=== PATIENT | female | born 1955 | race Caucasian/White ===

== ENCOUNTER 2018-04-13 12:25 | Emergency (ER) | payer OTHER ==
[2018-04-13] MEDS ORDERED: CODEINE 30MG/APAP 300MG TAB ONE ×2 (14:53→14:54)
[2018-04-13] MEDS ORDERED: LIDOCAINE VISCOUS 2% SOLN 15 ML UDC ONE (15:09)
--- NOTE | 2018-04-13 16:13 | EDPHYS ---
Physician Documentation [facility] Name: Salima Benitez Age: 62 yrs Sex: Female : 1955 Arrival Date: 04/13/2018 Time: 12:26 Bed 30 Private MD: Hari Gupta ED Physician Mann Fulton HPI: 04/13 14:14 This 62 yrs old Female presents to ER via Ambulatory with complaints of Leg cp Pain. 14:14 The patient presents with a laceration, irregular. The complaints affect the right pozo.cp 14:14 Context: resulted from a direct blow, from a heavy object, the patient can fully bear cp weight. Onset: The symptoms/episode began/occurred 11 day(s) ago. Patient reports initial injury occurred 11 days ago when she dropped mirror on right lower leg. Laceration was closed at [place] emergency department and patient had subsequent f/u appt with DR Gupta yesterday. Patient was told to come to ED today for reevaluation. Historical: - Allergies: 12:39 No Known Allergies; aj - Home Meds: 12:39 Lipitor 20 mg Oral tab 1 tab once daily [Active]; lisinopril 20 mg Oral tab 1 tab once aj daily [Active]; - PMHx: 12:39 Hyperlipidemia; Hypertension; aj - PSHx: 12:39 cataract; aj - Immunization history:: Adult Immunizations up to date. - Social history:: Smoking status: Patient/guardian denies using tobacco. - Ebola Screening: : Patient denies travel to an Ebola-affected area in the 21 days before illness onset No symptoms or risks identified at this time. ROS: 14:20 Constitutional: Negative for body aches, chills, fever, poor PO intake. cp 14:20 Eyes: Negative for injury, pain, redness, and discharge. cp 14:20 ENT: Negative for drainage from ear(s), ear pain, sore throat, difficulty swallowing, difficulty handling secretions. 14:20 Cardiovascular: Negative for chest pain. 14:20 Respiratory: Negative for cough, shortness of breath, wheezing. 14:20 Abdomen/GI: Negative for abdominal pain, nausea, vomiting, diarrhea, constipation. 14:20 Skin: Positive for laceration(s), of the anterior aspect right lower leg. 14:20 All other systems are negative. Exam: 14:28 Constitutional: The patient appears in no acute distress, alert, awake, non-toxic, well cp developed, well nourished, uncomfortable. 14:28 Head/Face: Normocephalic, atraumatic. cp 14:28 Eyes: Periorbital structures: appear normal, Conjunctiva: normal, no exudate, no injection, Lids and lashes: appear normal, bilaterally. 14:28 ENT: External ear(s): are unremarkable, Nose: is normal, Mouth: is normal, Posterior pharynx: is normal, airway is patent. 14:28 Chest/axilla: Inspection: normal. 14:28 Cardiovascular: Rate: normal. 14:28 Respiratory: the patient does not display signs of respiratory distress, Respirations: normal, no use of accessory muscles, no retractions, no splinting, no tachypnea. 14:28 Abdomen/GI: Exam negative for discomfort, distension, guarding, Inspection: abdomen appears normal. 14:28 Skin: abscess, not appreciated, Wound recheck: Suture laceration closure: no drainage, mild erythema, mild swelling, moderate dehiscence. Vital Signs: 12:39 BP 124 / 92; Pulse 96; Resp 15; Temp 97.6; Pulse Ox 98% on R/A; Weight 57.61 kg; Height aj 5 ft. 4 in. (162.56 cm); 14:46 BP 131 / 84; Pulse 71; Resp 20; Temp 99; tl3 16:11 BP 144 / 82; Pulse 82; Resp 18; Pulse Ox 100% ; tl3 12:39 Body Mass Index 21.80 (57.61 kg, 162.56 cm) Procedures: 16:00 Suture/Staple removal: Removed 10 sutures, from anterior aspect right lower leg, site cp appears minimal erythema, moderate wound dehiscence , dressed with wound cleaned and irrigated, dressed with non stick dressing and guaze. Patient tolerated well. MDM: 13:08 Patient medically screened. cp 14:30 Differential diagnosis: abscess, cellulitis, osteomyelitis. cp 14:45 Physician consultation: Hari Gupta MD was contacted at 14:45, regarding consult, cp patient's condition, requests that every other suture be removed from laceration, wound cleaned and irrigated and patient can f/u in clinic next week. Patient to be discharged with pain meds and antibiotic. 16:12 Data reviewed: vital signs, nurses notes, and as a result, I will discharge patient. cp 16:12 Counseling: I had a detailed discussion with the patient and/or guardian regarding: the cp historical points, exam findings, and any diagnostic results supporting the discharge/admit diagnosis, the need for outpatient follow up, a general surgeon, to return to the emergency department if symptoms worsen or persist or if there are any questions or concerns that arise at home. 04/13 16:11 Order name: Wound dressing: bacitracin and nonstick dressing; Complete Time: 16:24 cp Administered Medications: 14:59 Drug: Tylenol #3 (300 mg-30 mg) 2 tabs Route: PO; tl3 15:25 Follow up: Response: No adverse reaction tl3 Disposition: 04/13/18 16:13 Discharged to Home. Impression: Encounter for change or removal of nonsurgical wound dressing. - Condition is Stable. - Discharge Instructions: Dressing Change, Wound Check, Wound Care, [id number]. - Prescriptions for Bactrim DS 800- 160 mg Oral Tablet - take 1 tablet by ORAL route every 12 hours for 10 days; 20 tablet. Tylenol- Codeine #3 300-30 mg Oral Tablet - take 2 tablets by ORAL route every 6 hours As needed; 20 tablet. - Medication Reconciliation Form, Thank You Letter, Antibiotic Education, Prescription Opioid Use form. - Follow up: Hari Gupta MD; When: next week for wound check; Reason: sooner if wound appears worse. - Problem is an ongoing problem. - Symptoms have improved. Addendum: 04/15/2018 13:27 Co-signature as Attending Physician, Mann Fulton MD. g s Signatures: Sofya Branch RN RN Dalton Kevin PA PA cp Mann Fulton MD MD gs Lowrey, Tammy, DANITA RN tl3 Corrections: (The following items were deleted from the chart) 04/13 16:24 16:13 04/13/2018 16:13 Discharged to Home. Impression: Encounter for change or removal tl3 of nonsurgical wound dressing. Condition is Stable. Forms are Medication Reconciliation Form, Thank You Letter, Antibiotic Education, Prescription Opioid Use. Follow up: Hari Gupta; When: next week for wound check; Reason: sooner if wound appears worse. Problem is an ongoing problem. Symptoms have improved. cp
--- NOTE | 2018-04-13 16:13 | ER ---
Nurse's Notes [facility] Name: Salima Benitez Age: 62 yrs Sex: Female : 1955 Arrival Date: 04/13/2018 Time: 12:26 Bed 30 Private MD: Hari Gupta Diagnosis: Encounter for change or removal of nonsurgical wound dressing Presentation: 04/13 12:37 Presenting complaint: Patient states: Pain to sutures in right leg that were placed 2 aj weeks ago. Seen by PCP and Surgeon yesterday. Transition of care: patient was not received from another setting of care. Onset of symptoms was April 13, 2018. Care prior to arrival: None. 12:37 Method Of Arrival: Ambulatory aj 12:37 Acuity: LETICIA 4 aj 16:24 Risk Assessment: Do you want to hurt yourself or someone else? Patient reports no tl3 desire to harm self or others. Initial Sepsis Screen: Does the patient meet any 2 criteria? No. Patient's initial sepsis screen is negative. Does the patient have a suspected source of infection? No. Patient's initial sepsis screen is negative. Triage Assessment: 12:39 General: Appears in no apparent distress. comfortable, Behavior is calm, cooperative, aj appropriate for age. Pain: Complains of pain in right pozo. Neuro: Level of Consciousness is awake, alert, obeys commands, Oriented to person, place, time, situation. Respiratory: Airway is patent Respiratory effort is even, unlabored, Respiratory pattern is regular, symmetrical. Derm: Skin is intact, is healthy with good turgor, Skin is pink, warm \T\ dry. normal. Musculoskeletal: Reports pain in right pozo, anterior aspect of right ankle and dorsum of right foot. Historical: - Allergies: 12:39 No Known Allergies; aj - Home Meds: 12:39 Lipitor 20 mg Oral tab 1 tab once daily [Active]; lisinopril 20 mg Oral tab 1 tab once aj daily [Active]; - PMHx: 12:39 Hyperlipidemia; Hypertension; aj - PSHx: 12:39 cataract; aj - Immunization history:: Adult Immunizations up to date. - Social history:: Smoking status: Patient/guardian denies using tobacco. - Ebola Screening: : Patient denies travel to an Ebola-affected area in the 21 days before illness onset No symptoms or risks identified at this time. Screenin:17 Abuse screen: Denies threats or abuse. Nutritional screening: No deficits noted. tl3 Tuberculosis screening: No symptoms or risk factors identified. Fall Risk None identified. Assessment: 13:17 General: Appears uncomfortable, slender, well groomed, well developed, well nourished, tl3 Behavior is calm, cooperative, appropriate for age. Pain: Complains of pain in dorsum of right foot and anterior aspect of right ankle and right leg and right pozo Pain currently is 5 out of 10 on a pain scale. Aggravated by increased activity. Neuro: No deficits noted. Level of Consciousness is awake, alert, Oriented to person, place, time, situation, Appropriate for age. Cardiovascular: Capillary refill < 3 seconds in right toes Patient's skin is warm and dry. Respiratory: Airway is patent Respiratory effort is even, unlabored, Respiratory pattern is regular, symmetrical. GI: No signs and/or symptoms were reported involving the gastrointestinal system. : No signs and/or symptoms were reported regarding the genitourinary system. EENT: No signs and/or symptoms were reported regarding the EENT system. Derm: No signs and/or symptoms reported regarding the dermatologic system. Musculoskeletal:. Musculoskeletal: Reports pain in dorsum of right foot and anterior aspect of right ankle and right leg and right pozo since 02 of April, laceration to right pozo repaired at another facility flap has since turned black, seen by surgeon yesterday instructed to keep wrapped with wet gauze, until next when it will be reassessed. Started bleeding today. 14:46 Reassessment: Patient appears in no apparent distress at this time. No changes from tl3 previously documented assessment. Patient and/or family updated on plan of care and expected duration. Pain level reassessed. Patient is alert, oriented x 3, equal unlabored respirations, skin warm/dry/pink. 15:00 Reassessment: Patient appears in no apparent distress at this time. No changes from tl3 previously documented assessment. Patient and/or family updated on plan of care and expected duration. Pain level reassessed. Patient is alert, oriented x 3, equal unlabored respirations, skin warm/dry/pink. Dalton Page, at bedside discussing POC with pt. 16:11 Reassessment: Patient appears in no apparent distress at this time. No changes from tl3 previously documented assessment. Patient and/or family updated on plan of care and expected duration. Pain level reassessed. Patient is alert, oriented x 3, equal unlabored respirations, skin warm/dry/pink. wound dressed with wet gauze, dry gauze and wrapped with stephen wrap. Pt has crutches at home. Vital Signs: 12:39 BP 124 / 92; Pulse 96; Resp 15; Temp 97.6; Pulse Ox 98% on R/A; Weight 57.61 kg; Height aj 5 ft. 4 in. (162.56 cm); 14:46 BP 131 / 84; Pulse 71; Resp 20; Temp 99; tl3 16:11 BP 144 / 82; Pulse 82; Resp 18; Pulse Ox 100% ; tl3 12:39 Body Mass Index 21.80 (57.61 kg, 162.56 cm) aj ED Course: 12:26 Patient arrived in ED. sb2 12:26 Hari Gupta MD is Private Physician. sb2 12:38 Triage completed. aj 12:39 Arm band placed on left wrist. Patient placed in waiting room, Patient notified of wait aj time. 13:08 Uyen Alba RN is Primary Nurse. tl3 13:08 Dalton Meneses PA is PHCP. cp 13:08 Mann Fulton MD is Attending Physician. cp 13:17 Allergy band placed. Call light in reach. pt sitting in chair with leg elevated on bed. tl3 13:17 No provider procedures requiring assistance completed. tl3 16:11 Hari Gupta MD is Referral Physician. cp 16:11 Patient did not have IV access during this emergency room visit. tl3 Administered Medications: 14:59 Drug: Tylenol #3 (300 mg-30 mg) 2 tabs Route: PO; tl3 15:25 Follow up: Response: No adverse reaction tl3 Outcome: 16:11 Discharged to home via wheelchair. tl3 16:11 Condition: stable 16:11 Discharge instructions given to patient, Instructed on discharge instructions, follow up and referral plans. medication usage, Demonstrated understanding of instructions, follow-up care, medications, Prescriptions given X 1. 16:13 Discharge ordered by MD. cp 16:24 Patient left the ED. tl3 Signatures: Sofya Branch RN RN aj Dalton Meneses PA PA cp Billeau, Sheri sb2 Uyen Alba, RN RN tl3
[2018-04-13 16:31] VITALS: TEMP 99
[2018-04-13 16:32] VITALS: BP 144/82; O2SAT 100
== END 2018-04-13 16:24 | disposition home or self-care (01) ==
LOC: ER 12:25
DX: Z48.01 Encounter for change or removal of surgical wound dressing (principal); Z48.02 Encounter for removal of sutures; I10 Essential (primary) hypertension; E78.5 Hyperlipidemia, unspecified
CPT/HCPCS: 99283

== ENCOUNTER 2020-06-22 09:39 | Emergency (ER) | payer OTHER ==
[2020-06-22] MEDS ORDERED: HYDROCODONE/APAP 5/325 MG TAB ONE (10:23)
[2020-06-22] MEDS ORDERED: NA CHLORIDE 0.9% 100 ML IV ONE (10:45)
[2020-06-22] MEDS ORDERED: AMPICILLIN/SULBACT 1.5GM VIAL ONE (10:45)
--- NOTE | 2020-06-22 14:38 | RAD REPORT ---
EXAM DESCRIPTION: RAD - Wrist Left 3 View - 06/22/2020 2:20 pm CLINICAL HISTORY: LAC, wrist pain COMPARISON: No comparisons FINDINGS: No fracture is identified. There is no dislocation or periosteal reaction noted. Bones are osteopenic. Degenerative changes are present at the radiocarpal joint space and minimally at the tra pezial first metacarpal articulation. Soft tissues around the distal ulna are mildly prominent. No fo reign body seen. IMPRESSION: Osteopenic and degenerative bony change. No acute bone or joint finding. No foreign body.
--- OUTSIDE RECORDS SUMMARY | 2020-06-22 15:15 | XMS REPORT | Continuity of Care Document ---
:1955 Author Organization [facility] t Address [address] [place] [address] Care Team Providers Name Role Phone Unavailable Unavailable Unavailable Problems Condition Condition Condition Status Onset Resolution Last Treating Co mments Source Name Details Category Date Date Treatment Clinician Date Pure Pure Problem Active [facility] hyperchole hyperchole Lilli kes - sterolemia sterolemia [facility] Essential Essential Diagnosis Active [facility] (primary[facility] (primary[facility] - hypertensi hypertensi Me moria on on l Outpati ent Clinics Laceration Laceration Problem Active [facility] of right of right [facility] - lower leg lower leg Arie floyd with with l complicati complicati Ou tpati on, on, ent initial initial Clinics encounter encounter Gastroesop Gastroesop Problem Active [facility] hageal hageal [facility] - reflux reflux Memoria disease disease l without without Outpati esophagiti esophagiti en t s s Clinics Allergies, Adverse Reactions, Alerts This patient has no known allergies or adverse reactions. Medications Ordered Filled Start Stop Current Ordering Indication Dosage Frequency Signature Comments Components Source Medication Medication Date Date Medication? Clinician (SIG) Name Name Atorvastati Atorvastati Yes Ruddy [address] [facility] n Calcium n Calcium Tamera [facility] Lisinopril Lisinopril Yes Ruddy [address] [facility] Tamera [facility] Procedures This patient has no known procedures. Encounters Start End Encounter Admission Attending Care Care Encounter Source Date/Time Date/Time Type Type Clinicians Facility Department ID 2019-09-05 2019-09-05 Outpatient [facility] [id number] [facility] 08:00:00 08:00:00 [facility] Family Medicine l Medicine Outpati ent Clinics 2019-03-07 2019-03-07 [facility] [id number] [facility] 08:15:00 08:15:00 t [facility] Medicine Outpati ent Clinics 2019-01-07 2019-01-07 [facility] [id number] [facility] 16:00:00 16:00:00 [facility] Medicine Outpati ent Clinics 2018-12-31 2018-12-31 [facility] [id number] [facility] 08:30:00 08:30:00 t [facility] Medicine Outpati ent Clinics 2018-12-27 2018-12-27 [facility] [id number] [facility] 15:45:00 15:45:00 t [facility] Medicine Outpati ent Clinics 2018-11-29 2018-11-29 [facility] [id number] [facility] 08:30:00 08:30:00 t [facility] Medicine Outpati ent Clinics 2018-05-24 2018-05-24 [facility] [id number] [facility] 08[facility]30:00 08:30:00 t [facility] Medicine Outpati ent Clinics 2018-05-18 2018-05-18 [facility] [id number] [facility] 14:31:00 14:31:00 t [facility] Medicine Outpati ent Clinics 2018-04-26 2018-04-26 [facility] [id number] [facility] 08:30:00 08:30:00 t [facility] Medicine Outpati ent Clinics 2018-04-20 2018-04-20 [facility] [id number] [facility] 11:06:00 11:06:00 t Specialty/U Lilli kes - Specialty rology [facility] a /Urology Clinic l Clinic Outpati ent Clinics 2018-04-19 2018-04-19 [facility] [id number] [facility] 14:00:00 14:00:00 t Specialty/U [facility] - Specialty ro[facility]y [facility] Clinic Outpati ent Clinics 2018-04-18 2018-04-18 Outpatient [facility] [id number] [facility] [address] 14:39:00 14:39:00 t Specialty/U [facility]es - Specialty rology [facility] l Clinic Outpati ent Clinics 2018-04-12 2018-04-12 Outpatient [facility] [id number] [facility] [address] 14:00:00 14:00:00 t Specialty/U [facility] Outpati ent Clinics 2018-04-11 2018-04-11 Outpatient [facility] [id number] [facility] [address] 14:45:00 14:45:00 t [facility] Family Medicine Medicine Outpati ent Clinics Results This patient has no known results.
--- NOTE | 2020-06-23 07:29 | EDPHYS ---
Physician Documentation [facility] Name: Salima Benitez Age: 64 yrs Sex: Female : 1955 Arrival Date: 06/22/2020 Time: 09:43 Bed 14 Private MD: ED Physician Shelton Garcia HPI: 06/22 10:04 This 64 yrs old Female presents to ER via Ambulatory with complaints of Wrist pm1 Pain. 10:04 The patient or guardian reports pain. Context: The problem was sustained at work, pm1 resulted from cut her the base of her left hand and the proximal thenar process while she was with a razor blade. The wound has healed well without any discharge or redness. Patient injured herself on 06/18/2020 but reports that pain and mild swelling onset yesterday. Modifying factors: The symptoms are alleviated by elevation, stephen wrap, the symptoms are aggravated by movement. Associated signs and symptoms: Pertinent negatives: cyanosis distally, decreased sensation distally, fever, numbness distally, tingling distally. The patient has not experienced similar symptoms in the past. The patient has not recently seen a physician, the patient's primary care provider is Dr. Dr. Ozuna. Was instructed to come to the ER for x-rays. - Immunization history:: Last tetanus immunization: up to date. - Social history:: Smoking status: Patient denies any tobacco usage or history of. Patient/guardian denies using alcohol, street drugs, tobacco products. ROS: 10:36 Constitutional: Negative for fever, chills, and weight loss. pm1 10:36 Cardiovascular: Negative for chest pain, palpitations, and edema, Respiratory: Negative pm1 for shortness of breath, cough, wheezing, and pleuritic chest pain, Abdomen/GI: Negative for abdominal pain, nausea, vomiting, diarrhea, and constipation, Back: Negative for injury and pain. 10:36 Skin: Negative for injury, rash, and discoloration, Neuro: Negative for headache, weakness, numbness, tingling, and seizure. 10:36 MS/extremity: Positive for pain, swelling, of the palmar aspect of left wrist, Negative for decreased range of motion, deformity. Exam: 10:37 Hand exam: is negative for decreased range of motion, snuff box/scaphoid tenderness, pm1 Exam is positive for swelling, tenderness, ROM: full active range of motion, in the left hand, fingers and wrist, Circulation is intact in all extremities. brisk capillary refill. sensation intact. Tendon exam: specific tendon testing normal through active and passive range of motion 10:37 Skin: Appearance: normal except for affected area, injury, laceration(s), the wound is pm1 approximately 1 cm(s), of the thenar process of left hand. No wound dehisence, discharge or redness. 10:37 Constitutional: This is a well developed, well nourished patient who is awake, alert, and in no acute distress. Head/Face: Normocephalic, atraumatic. 10:37 Cardiovascular: Rate: normal, Rhythm: regular, Pulses: no pulse deficits are appreciated. 10:37 Respiratory: Exam negative for acute changes, respiratory distress, shortness of breath. 10:37 Musculoskeletal/extremity: Extremities: grossly normal except: noted in the tenderness to proximal aspect of left thenar process and to distal aspect of lateral left wrist: mild swelling, There is no evidence of decreased ROM, deformity, erythema. Vital Signs: 09:56 BP 122 / 70; Pulse 70; Resp 16; Temp 98.3; Pulse Ox 100% ; Weight 56.7 kg; Height 5 ft. ll1 5 in. (165.10 cm); Pain 7/10; 09:56 Body Mass Index 20.80 (56.70 kg, 165.10 cm) ll1 MDM: 10:05 Patient medically screened. pm1 10:12 Data reviewed: vital signs. Data interpreted: Pulse oximetry: on room air is 100 %. pm1 Interpretation: normal. 10:13 ED course: x-rays images are not able to be sent to PACS or radiologists due to pm1 computer network issues. My interpretation on left wrist: No foreign body or air. No fractures. Mild inflammation to base of left hand and left wrist. 10:18 Counseling: I had a detailed discussion with the patient and/or guardian regarding: the pm1 historical points, exam findings, and any diagnostic results supporting the discharge/admit diagnosis, radiology results. 10:29 ED course: Patient does not want any blood work. Patient just wanted a x-ray and a pm1 prescription for antibiotics and to go back home so she can return to work tomorrow. After some effort I was able to convince the patient to at least get IV antibiotics. After the IV antibiotics will discharge the patient home with antibiotics and return precautions along with hand surgeon information. 10:45 ED course: Patient report last tetanus immunization less than 5 yrs ago. pm1 Administered Medications: 10:17 Drug: [place] 5 mg-325 mg 1 tabs Route: PO; iw 10:59 Follow up: Response: No adverse reaction; Pain is decreased iw 10:41 Drug: Unasyn 1.5 grams Route: IVPB; Infused Over: 30 mins; Site: right antecubital; iw 11:09 Follow up: IV Status: Completed infusion iw Disposition: 11:51 Co-signature as Attending Physician, Shelton Garcia MD. rn Disposition: 06/22/20 10:42 Discharged to Home. Impression: Laceration without foreign body of left hand, Cellulitis of left upper limb. - Condition is Stable. - Discharge Instructions: Cellulitis, Adult, Laceration Care, Adult. - Prescriptions for Keflex 500 mg Oral Capsule - take 1 capsule by ORAL route every 8 hours for 10 days; 30 capsule. Tramadol 50 mg Oral Tablet - take 1 tablet by ORAL route every 8 hours as needed; 12 tablet. Bactrim DS 800- 160 mg Oral Tablet - take 1 tablet by ORAL route every 12 hours for 10 days; 20 tablet. - Work release form, Medication Reconciliation Form, Thank You Letter, Antibiotic Education, Prescription Opioid Use form. - Follow up: Emergency Department; When: As needed; Reason: Worsening of condition. Follow up: Manuel Blackwell; When: 2 - 3 days; Reason: Recheck today's complaints, Continuance of care, Re-evaluation by your physician. - Problem is new. - Symptoms have improved. Signatures: Delmy Panda RN RN iw Shelton Garcia MD MD rn Marinas, Patrick, [employer] pm1 Serafin Melendez RN RN ll1 Corrections: (The following items were deleted from the chart) 11:16 10:42 06/22/2020 10:42 Discharged to Home. Impression: Laceration without foreign body iw of left hand; Cellulitis of left upper limb. Condition is Stable. Discharge Instructions: Cellulitis, Adult, Laceration Care, Adult. Prescriptions for Keflex 500 mg Oral Capsule - take 1 capsule by ORAL route every 8 hours for 10 days; 30 capsule, Tramadol 50 mg Oral Tablet - take 1 tablet by ORAL route every 8 hours as needed; 12 tablet, Bactrim DS 800-160 mg Oral Tablet - take 1 tablet by ORAL route every 12 hours for 10 days; 20 tablet. and Forms are Work release form, Medication Reconciliation Form, Thank You Letter, Antibiotic Education, Prescription Opioid Use. Follow up: Emergency Department; When: As needed; Reason: Worsening of condition. Follow up: Manuel Blackwell; When: 2 - 3 days; Reason: Recheck today's complaints, Continuance of care, Re-evaluation by your physician. Problem is new. Symptoms have improved. pm1
--- NOTE | 2020-06-23 07:29 | ER ---
Nurse's Notes [facility] Name: Salima Benitez Age: 64 yrs Sex: Female : 1955 Arrival Date: 06/22/2020 Time: 09:43 Bed 14 Private MD: Diagnosis: Laceration without foreign body of left hand;Cellulitis of left upper limb Presentation: 06/22 09:56 Chief complaint: Patient states: Puncture to left wrist with razor blade on 06/18/20. ll1 Pain and swelling started 06/21/20. Coronavirus screen: Client denies travel out of the [place] in the last 14 days. At this time, the client does not indicate any symptoms associated with coronavirus-19. Ebola Screen: Patient denies travel to an Ebola-affected area in the 21 days before illness onset. Initial Sepsis Screen: Does the patient meet any 2 criteria? No. Patient's initial sepsis screen is negative. Risk Assessment: Do you want to hurt yourself or someone else? Patient reports no desire to harm self or others. Onset of symptoms was June 18, 2020. 09:56 Method Of Arrival: Ambulatory ll1 09:56 Acuity: LETICIA 4 ll1 10:02 Note NKDA. PMX: HTN, high cholesterol. ll1 10:57 Initial Sepsis Screen: Does the patient have a suspected source of infection? No. iw Patient's initial sepsis screen is negative. Triage Assessment: 10:57 General: Appears in no apparent distress. Behavior is calm, cooperative. iw 10:58 Pain: Complains of pain in left hand and palmar aspect of left wrist. iw - Immunization history:: Last tetanus immunization: up to date. - Social history:: Smoking status: Patient denies any tobacco usage or history of. Patient/guardian denies using alcohol, street drugs, tobacco products. Screenin:57 Abuse screen: Denies threats or abuse. Denies injuries from another. Nutritional iw screening: No deficits noted. Tuberculosis screening: No symptoms or risk factors identified. Fall Risk None identified. Assessment: 10:58 Reassessment: Patient appears in no apparent distress at this time. Patient and/or iw family updated on plan of care and expected duration. Pain level reassessed. Patient is alert, oriented x 3, equal unlabored respirations, skin warm/dry/pink. antibiotics infusing to RAC. Vital Signs: 09:56 BP 122 / 70; Pulse 70; Resp 16; Temp 98.3; Pulse Ox 100% ; Weight 56.7 kg; Height 5 ft. ll1 5 in. (165.10 cm); Pain 7/10; 09:56 Body Mass Index 20.80 (56.70 kg, 165.10 cm) ll1 ED Course: 09:43 Patient arrived in ED. ds1 09:59 Triage completed. ll1 09:59 Arm band placed on Patient placed in an exam room, on a stretcher. ll1 10:00 Patient has correct armband on for positive identification. iw 10:05 Martin Harvey NP is PHCP. pm1 10:05 Dalton Ly MD is Attending Physician. pm1 10:09 Delmy Panda, DANITA is Primary Nurse. iw 10:35 Inserted saline lock: 20 gauge in right forearm, using aseptic technique. 3 10:42 Manuel Blackwell MD is Referral Physician. pm1 10:49 No provider procedures requiring assistance completed. ss 10:51 Shelton Garcia MD is Attending Physician. pm1 11:15 IV discontinued, intact, bleeding controlled, No redness/swelling at site. Pressure iw dressing applied. Administered Medications: 10:17 Drug: [place] 5 mg-325 mg 1 tabs Route: PO; iw 10:59 Follow up: Response: No adverse reaction; Pain is decreased iw 10:41 Drug: Unasyn 1.5 grams Route: IVPB; Infused Over: 30 mins; Site: right antecubital; iw 11:09 Follow up: IV Status: Completed infusion iw Outcome: 10:42 Discharge ordered by . pm1 10:49 Condition: good ss 10:49 Discharge instructions given to patient, Instructed on discharge instructions, follow up and referral plans. medication usage, wound care, Demonstrated understanding of instructions, follow-up care, medications, Prescriptions given X 3. 11:15 Discharged to home ambulatory. iw 11:16 Patient left the ED. iw Signatures: Rachel Holt ds1 Delmy Panda RN RN iw Claudette Bowman RN RN ss Martin Harvey NP JIRA ADMINISTRATOR pm1 Dionne Stanley 3 Serafin Melendez RN RN ll1 Corrections: (The following items were deleted from the chart) 11:45 10:49 IV discontinued, intact, bleeding controlled, No redness/swelling at site. iw Pressure dressing applied, iw
[2020-06-23 09:27] VITALS: BP 115/80; TEMP 98.5; O2SAT 99
== END 2020-06-22 11:16 | disposition home or self-care (01) ==
LOC: ER 09:39
DX: L03.114 Cellulitis of left upper limb (principal)
CPT/HCPCS: 96365; 99283; J0295

== ENCOUNTER 2022-03-28 13:09 | Emergency (ER) | payer OTHER ==
--- OUTSIDE RECORDS SUMMARY | 2022-03-28 13:12 | XMS REPORT | Continuity of Care Document ---
:[address] [facility] t Address [address] [place] [address] Care Team Providers Name Role Phone DOCTOR UNASSIGNED, NAME Primary Care Physician Unavailable Zuri Attending Clinician Unavailable RADIOLOGY Attending Clinician Unavailable Radiology Attending Clinician Unavailable [facility] Admitting Clinician Unavailable Payers Payer Name Policy Type Policy Number Effective Date Expiration Date [facility] [id number] 2016 2017 CHOICE 00:00:00 00:00:00 Problems Condition Condition Condition Status Onset Resolution Last Treating Co mments Source Name Details Category Date Date Treatment Clinician Date Well woman Well woman Disease Active 2016-11 U nivers exam with exam with 1-27 ity of routine routine 00:00: [place] [facility]olog[facility] 00 Ok dical kaitlyn exam kaitlyn exam Branch Pure Pure Problem Active Common hyperchole hyperchole Sp venkata sterolemia sterolemia - [facility] Essential Essential Diagnosis Active C ommon (primary) (primary) Spir it hypertensi hypertensi - [facility] on on [facility] Laceration Laceration Problem Active C ommon of right of right Spirit lower leg lower leg - CH I with with St complicati complicati Lilli kes on, on, Medical initial initial Center encounter encounter Gastroesop Gastroesop Problem Active C ommon hageal hageal Spirit reflux reflux - [facility] disease disease [facility] without without [facility] es[facility] Me dical s s Center Allergies, Adverse Reactions, Alerts Allergy Allergy Status Severity Reaction(s) Onset Inactive Treating Comm ents Source Name Type Date Date Clinician NO KNOWN Drug Active Univers ALLERGIE Class ity of S [facility] Social History Social Habit Start Date Stop Date Quantity Comments Source Alcohol intake 2017-10-09 2017-10-09 Current University of 00:00:00 00:00:00 non-drinker of [facility] alcohol Branch (finding) Cigarettes smoked 2017-09-20 2017-09-20 [facility] ity of current (pack per 00:00:00 00:00:00 [facility] ) - Reported Branch Cigarette 2017-09-20 2017-09-20 University of pack-years 00:00:00 00:00:[address] [facility] Tobacco use and 2017-09-20 2017-09-20 Never used Universit y of exposure 00:00:00 00:00:[address] [facility] Sex Assigned [birth year] Universit y of 00:00:00 00:00:[address] [facility] Smoking Status Start Date Stop Date Source Former smoker 2017-09-20 00:00:00 2017-09-20 00:00:00 Universi ty [facility] Medications Ordered Filled Start Stop Current Ordering Indication Dosage Frequency Signature Comments Components Source Medication Medication Date Date Medication? Clinician (SIG) Name Name lisinopril 2016-11 Yes 10mg Take 10 mg U nivers 10 mg 1-27 by mouth ity of tablet 12:57: at [place] [address] bedtime. Medical Branch atorvastati 2016-11 Yes 10mg Take 10 mg Univers n 10 mg 1-27 by mouth ity of tablet 12:57: at [place] [address] bedtime. Medical Branch Atorvastati Atorvastati Yes Ruddy 1 tablet Common n Calcium n Calcium Tamera Spir it - [facility] Lisinopril Lisinopril Yes Ruddy 1 tablet Common Tamera Spirit [facility] Procedures Procedure Date / Time Performed Performing Clinician Sourc e XR KNEE <3 VW RIGHT 2021-10-27 01:01:59 Ruba Alaniz [facility] Encounters Start End Encounter Admission Attending Care Care Encounter Source Date/Time Date/Time Type Type Clinicians Facility Department ID 2021-12-08 Outpatient MADDISON [facility] [id number] Common 14:39:09 Ruddy [facility] 2021-10-26 2021-10-26 Outpatient R RADIOLOGY [facility] [id number] Univers 18:55:16 23:59:[address] [facility] 2021-10-26 2021-10-26 Hospital Radiology [facility] [id number] Univers 18:55:16 23:59:00 Encounter ANGLEMICKEY [id number] ity of [place] [id number] [facility] [id number] [facility] 807 Branch 2019-09-05 2019-09-05 Outpatient [facility] [id number] Common 08:00:00 08:00:[address] [facility] [address] [facility] 2019-03-07 2019-03-07 Outpatient [facility] [id number] Common 08:15:00 08:15:[address] [facility] [address] [facility] 2019-01-07 2019-01-07 Out[facility] [id number] Common 16:00:00 16:00:[address] [facility] 2018-12-31 2018-12-31 Outpatient [facility] [id number] Common 08:30:00 08:30:[address] [facility] 2018-12-27 2018-12-27 Outpatient [facility] [id number] Common 15:45:00 15:45:[address] [facility] 2018-11-29 2018-11-29 Outpatient [facility] [id number] Common 08:30:00 08:30:[address] [facility] 2018-05-24 2018-05-24 Outpatient [facility] [id number] Common 08:30:00 08:30:[address] [facility] 2018-05-18 2018-05-18 Out[facility] [id number] Common 14:31:00 14:31:00 t [facility] it Road [facility] 2018-04-26 2018-04-26 Outpatient [facility] [id number] Common 08:30:00 08:30:00 t [facility] it [address] [facility] 2018-04-20 2018-04-20 Out[facility] [id number] Common 11:06:00 11:06:00 t Specialty/U Sp venkata Specialty rology - [facility] 2018-04-19 2018-04-19 [facility] [id number] Common 14:00:00 14:00:00 t Specialty/U Sp venkata Specialty rology - [facility] 2018-04-18 2018-04-18 Outpatient [facility] [id number] Common 14:39:00 14:39:00 t Specialty/U Sp venkata Specialty rology - [facility] 2018-04-12 2018-04-12 [facility] [id number] Common 14:00:00 14:00:00 t Specialty/U Sp venkata Specialty rology - [facility] 2018-04-11 2018-04-11 Outpatient [facility] [id number] Common 14:45:00 14:45:00 t [facility] it Road [facility] 2008-01-07 2008-01-07 Outpatient [facility] [id number] Univers 00:00:00 00:00:00 [id number] ity [facility] 2007-03-26 2007-03-26 Outpatient [facility] [id number] Univers 00:00:00 00:00:00 [id number] ity [facility] 2007-03-19 2007-03-19 Outpatient [facility] [id number] Univers 00:00:00 00:00:00 [id number] ity [facility] 2007-03-13 2007-03-13 Outpatient [facility] [id number] Univers 00:00:00 00:00:00 [id number] ity [facility] Results This patient has no known results.
--- NOTE | 2022-03-28 14:41 | ER ---
Nurse's Notes [facility] Name: Salima Benitez Age: 66 yrs Sex: Female : 1955 Arrival Date: 03/28/2022 Time: 13:13 Bed Waiting Private MD: Diagnosis: Presentation: 03/28 13:40 Chief complaint: Patient states: Fish hook stuck in L hand 2 hour [employer]. No bleeding. ll1 Coronavirus screen: Vaccine status: Patient reports being unvaccinated. Client denies travel out of the [place] in the last 14 days. At this time, the client does not indicate any symptoms associated with coronavirus-19. Ebola Screen: Patient denies travel to an Ebola-affected area in the 21 days before illness onset. Initial Sepsis Screen: Does the patient meet any 2 criteria? No. Patient's initial sepsis screen is negative. Does the patient have a suspected source of infection? Yes: Skin breakdown/wound. Risk Assessment: Do you want to hurt yourself or someone else? Patient reports no desire to harm self or others. Onset of symptoms was March 28, 2022. 13:40 Method Of Arrival: Ambulatory ll1 13:40 Acuity: LETICIA 4 ll1 Historical: - Allergies: 13:42 No Known Allergies; ll1 - PMHx: 13:42 Hyperlipidemia; Hypertension; ll1 - PSHx: 13:42 cataract repair; ll1 - Immunization history:: Client reports having NOT received the Covid vaccine. Last tetanus immunization: < 5 years ago. - Social history:: Smoking status: Patient denies any tobacco usage or history of. Vital Signs: 13:40 BP 120 / 78; Pulse 79; Resp 16; Temp 98.1; Pulse Ox 99% ; Weight 56.7 kg; Height 5 ft. ll1 5 in. (165.10 cm); Pain 4/10; 13:40 Body Mass Index 20.80 (56.70 kg, 165.10 cm) ll1 ED Course: 13:13 Patient arrived in ED. ds1 13:37 Arnoldo Lemons PA is PHCP. kena 13:37 Dalton Ly MD is Attending Physician. jmm 13:42 Triage completed. ll1 13:43 Arm band placed on. ll1 Administered Medications: No medications were administered Outcome: 14:40 Patient left the ED. ll1 Signatures: Arnoldo Lemons PA PA jmm Sanford, Demi ds1 Serafin Melendez RN RN ll1
[2022-03-28 14:46] VITALS: BP 120/78; TEMP 98.1; O2SAT 99
== END 2022-03-28 14:40 | disposition left against medical advice (07) ==
LOC: ER 13:09
DX: S69.92XA Unspecified injury of left wrist, hand and finger(s), initial encounter (principal); Z53.21 Procedure and treatment not carried out due to patient leaving prior to being seen by health care provider
CPT/HCPCS: 99281

== ENCOUNTER → 2023-11-11 | Emergency (ER) | payer OTHER ==
[~2023-11-11] MED LIST: ACETAMINOPHEN 325 MG TABLET ONE; AMOX/K CLAV 875 MG TAB ONE; SMZ./TMP. 800/160 MG TABLET ONE
--- NOTE | 2023-11-11 17:19 | EDPHYS ---
Physician Documentation [facility] Name: Salima Benitez Age: 68 yrs Sex: Female : 1955 Arrival Date: 11/11/2023 Time: 16:40 Bed IW7 Private MD: ED Physician Shelton Garcia HPI: 11/11 17:36 This 68 yrs old Female presents to ER via Ambulatory with complaints of Insect Bite. kb 17:36 Patient is a 68-year-old female who woke up with an insect bite to her left posterior kb thigh on , 3 days ago. States redness has been getting worse and it is painful.. Historical: - Home Meds: 17:30 Lipitor 20 mg Oral tab 1 tab once daily [Active]; lisinopril 20 mg Oral tab 1 tab once bp daily [Active]; - PMHx: 17:30 Hyperlipidemia; Hypertension; bp - PSHx: 17:30 cataract repair; bp - Immunization history:: Adult Immunizations up to date. - Social history:: Smoking status: Patient denies any tobacco usage or history of. ROS: 17:36 Constitutional: Negative for fever, chills, and weight loss, kb 17:36 Skin: Positive for abscess, of the left hamstring, 17:36 All other systems are negative, Exam: 17:36 Constitutional: This is a well developed, well nourished patient who is awake, alert, kb and in no acute distress. Head/Face: Normocephalic, atraumatic. ENT: Moist Mucous membranes Cardiovascular: Regular rate Respiratory: Respirations even and unlabored. No increased work of breathing. Talking in full sentences MS/ Extremity: Pulses equal, no cyanosis. Neurovascular intact. Full, normal range of motion. Neuro: Awake and alert, GCS 15, oriented to person, place, time, and situation. Moves all extremities. Normal gait. 17:36 Skin: abscess, that is small, that is moderate sized, of the left hamstring, Vital Signs: 17:28 BP 168 / 98; Pulse 85; Resp 16; Temp 98; Pulse Ox 99% ; bp MDM: 17:02 Patient medically screened. kb 17:36 Data reviewed: vital signs, nurses notes. kb 17:38 Differential diagnosis: abscess, allergic reaction, cellulitis, insect bite. kb Counseling: I had a detailed discussion with the patient and/or guardian regarding the historical points, exam findings, and any diagnostic results supporting the discharge/admit diagnosis, the need for outpatient follow up, a family practitioner, to return to the emergency department if symptoms worsen or persist or if there are any questions or concerns that arise at home. 17:38 ED course: No drainable abscess appreciated. . kb Administered Medications: 17:38 Drug: Trimethoprim-Sulfamethoxazole PO (160 mg-800 mg (DS) 1 tablet PO once Route: PO; bp 17:39 Follow up: Response: No adverse reaction bp 17:38 Drug: Acetaminophen PO 650 mg PO once Route: PO; bp 17:39 Follow up: Response: No adverse reaction bp Disposition: 18:38 Co-signature as Attending Physician, Shelton Garcia MD I reviewed the patient's care rn provided by the Advanced Practice Provider and agree with the diagnosis and treatment plan. Disposition Summary: 11/11/23 17:18 Discharge Ordered Notes: Location: Home kb Condition: Stable kb Diagnosis - Cutaneous abscess of left lower limb kb Followup: kb - With: Emergency Department - When: As needed - Reason: Worsening of condition Followup: kb - With: Private Physician - When: 2 - 3 days - Reason: Recheck today's complaints, Continuance of care, Re-evaluation by your physician Discharge Instructions: - Discharge Summary Sheet kb - Skin Abscess, [id number] kb Forms: - Medication Reconciliation Form kb - Thank You Letter kb - Antibiotic Education kb - Prescription Opioid Use kb - Patient Portal Instructions kb - Leadership Thank You Letter kb Prescriptions: - Bactrim DS 800-160 mg Oral Tablet - take 1 tablet ORAL route every 12 hours for 10 days; 20 tablet; Refills: 0, kb Product Selection Permitted Signatures: Shabana Mauro, AAKASH HARGROVE-Shelton Lei MD MD rn Peltier, Brian, RN RN bp
--- NOTE | 2023-11-11 17:45 | ER ---
Nurse's Notes [facility] Name: Salima Benitez Age: 68 yrs Sex: Female : 1955 Arrival Date: 11/11/2023 Time: 16:40 Bed IW7 Private MD: Diagnosis: Cutaneous abscess of left lower limb Presentation: 11/11 17:28 Chief complaint: Patient states: POSTERIOR LEFT THIGH ABSCESS x2 DAYS. Coronavirus bp screen: At this time, the client does not indicate any symptoms associated with coronavirus-19. Ebola Screen: No symptoms or risks identified at this time. Initial Sepsis Screen: Does the patient meet any 2 criteria? No. Patient's initial sepsis screen is negative. Does the patient have a suspected source of infection? No. Patient's initial sepsis screen is negative. Risk Assessment: Do you want to hurt yourself or someone else? Patient reports no desire to harm self or others. Onset of symptoms was November 11, 2023. 17:28 Method Of Arrival: Ambulatory bp 17:28 Acuity: LETICIA 4 bp Triage Assessment: 17:30 Bite description: bite sustained to left hamstring by N/A, animal information: bp vaccination(s) is not applicable. General: Appears in no apparent distress. Behavior is calm, cooperative, appropriate for age. Pain: Complains of pain in right hamstring. Historical: - Home Meds: 17:30 Lipitor 20 mg Oral tab 1 tab once daily [Active]; lisinopril 20 mg Oral tab 1 tab once bp daily [Active]; - PMHx: 17:30 Hyperlipidemia; Hypertension; bp - PSHx: 17:30 cataract repair; bp - Immunization history:: Adult Immunizations up to date. - Social history:: Smoking status: Patient denies any tobacco usage or history of. Screenin:43 [facility] ED Fall Risk Assessment (Adult) History of falling in the last 3 months, bp including since admission No falls in past 3 months (0 pts). Abuse screen: Denies threats or abuse. Denies injuries from another. Nutritional screening: No deficits noted. Tuberculosis screening: No symptoms or risk factors identified. Vital Signs: 17:28 BP 168 / 98; Pulse 85; Resp 16; Temp 98; Pulse Ox 99% ; bp ED Course: 16:44 Patient arrived in ED. ts1 17:01 Shabana Mauro FNP-C is [facility]. kb 17:01 Shelton Garcia MD is Attending Physician. kb 17:29 Triage completed. bp 17:30 Arm band placed on. bp 17:38 Clay May, RN is Primary Nurse. bp 17:43 Patient has correct armband on for positive identification. bp 17:43 No provider procedures requiring assistance completed. Patient did not have IV access bp during this emergency room visit. Administered Medications: 17:38 Drug: Trimethoprim-Sulfamethoxazole PO (160 mg-800 mg (DS) 1 tablet PO once Route: PO; bp 17:39 Follow up: Response: No adverse reaction bp 17:38 Drug: Acetaminophen PO 650 mg PO once Route: PO; bp 17:39 Follow up: Response: No adverse reaction bp Outcome: 17:18 Discharge ordered by MD. kb 17:43 Discharged to home ambulatory, bp 17:43 Condition: stable 17:43 Discharge instructions given to patient, Instructed on discharge instructions, follow up and referral plans. medication usage, wound care, Demonstrated understanding of instructions, follow-up care, medications, Prescriptions given X 1, 17:44 Patient left the ED. bp Signatures: Shabana Mauro FNP-C FOREST MANAGEMENT PROFESSOR-Ckb Clay May, RN RN Silvia Huddleston PAS PAS ts1
[2023-11-11 18:04] VITALS: BP 168/98; TEMP 98; O2SAT 99
== END ==
LOC: ER 16:40
DX: L02.416 Cutaneous abscess of left lower limb (principal)
CPT/HCPCS: 99283

== ENCOUNTER 2024-03-07 14:48 | Emergency (ER) | payer OTHER ==
[2024-03-07 15:40] LABS: Absolute Eosinophils 0.1 K/uL (0-0.5); Absolute Lymphocytes (CBC) 1.5 K/uL (0.7-4.9); Absolute Monocytes 0.4 K/uL (0.1-1.3); Absolute Neutrophil 3.8 K/uL (1.8-8.0); Basophils % 0.5 % (0-1.3); Eosinophils % 1.1 % (0-4.4); Lymphocytes % 26.1 % (15.3-44.8); MCH 31.3 pg (27.0-35.0); MCHC 34.1 g/dL (32.0-36.0); MCV 91.8 fL (80-100); MPV 7.7 fL (7.6-11.3); Monocytes % 7.4 % (3.3-12.3); Neutrophils % 64.9 % (41.7-73.7); Nucleated Red Blood Cells % 0.1 % (0-0); PT Prothrombin Time 10.5 SECONDS (9.5-12.5); Platelets 303 thou/uL (152-406); Protime INR 0.95; RBC Red Blood Cell Count 4.14 M/uL (3.86-4.86); Red Cell Distribution Width 13.2 % (12.1-15.2)
[2024-03-07 15:50] LABS: Anion Gap 10.7 mEq/L (5.0-15.0); Potassium 3.7 mEq/L (3.5-5.1)
[2024-03-07] MEDS ORDERED: TRANEXAMIC ACID 1,000 MG/10 ML VIAL IV ONE (15:51)
--- NOTE | 2024-03-07 16:25 | RAD REPORT ---
EXAM DESCRIPTION: CT - [id number] - 03/07/2024 3:05 pm CLINICAL HISTORY: TRAUMA COMPARISON: No comparisons TECHNIQUE: Axial thin cut noncontrast CT images of the head were obtained. Axial thin cut noncontrast CT images of the cervical spine were obtained. Multiplanar reformatted images were generated and reviewed. All CT scans are performed using dose optimization technique as appropriate and may include automated exposure control or mA/KV adjustment according to patient size. FINDINGS: CT HEAD WITHOUT CONTRAST: No acute hemorrhage, hydrocephalus or extra-axial collection is identified.No areas of brain edema or midline shift. The paranasal sinuses and mastoids are clear.The calvarium is intact. Left frontal scalp swelling an d small hematoma. CT CERVICAL SPINE WITHOUT CONTRAST: No fracture or subluxation.No prevertebral soft tissues swelling is identified. IMPRESSION: Left frontal scalp swelling and small hematoma. No other acute traumatic intracranial or cervical spine findings.
[2024-03-07] MEDS ORDERED: LIDOCAINE 2% W/EPI 1:200,000 MPF 20 ML VIAL IM ONE (16:26)
[2024-03-07] MEDS ORDERED: DERMABOND SKIN ADHESIVE TOP ONE (16:28)
--- NOTE | 2024-03-07 17:03 | ER ---
Nurse's Notes [facility] Name: Salima Benitez Age: 68 yrs Sex: Female : 1955 Arrival Date: 03/07/2024 Time: 14:48 Bed 2 Private MD: Diagnosis: Closed head injury, forehead hematoma, forehead laceration, mechanical fall Presentation: 03/07 14:55 Chief complaint: Patient states: Trip and fall just LEGAL AID. Hit head, laceration noted. On ll1 clopidogrel, no LOC. Trauma alert called. Coronavirus screen: Client denies travel out of the [place] in the last 14 days. At this time, the client does not indicate any symptoms associated with coronavirus-19. Ebola Screen: Patient denies travel to an Ebola-affected area in the 21 days before illness onset. Initial Sepsis Screen: Does the patient meet any 2 criteria? No. Patient's initial sepsis screen is negative. Does the patient have a suspected source of infection? No. Patient's initial sepsis screen is negative. Risk Assessment: Do you want to hurt yourself or someone else? Patient reports no desire to harm self or others. Onset of symptoms was March 07, 2024. 14:55 Method Of Arrival: Wheelchair ll1 14:55 Acuity: LETICIA 2 ll1 Triage Assessment: 14:56 General: Appears distressed, uncomfortable, Behavior is calm, cooperative, appropriate ll1 for age. Pain: Complains of pain in head Pain currently is 8 out of 10 on a pain scale. Quality of pain is described as aching, throbbing. Neuro: Reports headache. Derm: Reports laceration to forehead area. Historical: - Allergies: 14:54 No Known Allergies; ll1 - PMHx: 14:54 Hyperlipidemia; Hypertension; ll1 - PSHx: 14:54 cataract repair; ll1 - Immunization history:: Adult Immunizations up to date. - Infectious Disease History:: Denies. - Social history:: Smoking status: Patient denies any tobacco usage or history of. Screenin:59 [facility] ED Fall Risk Assessment (Adult) History of falling in the last 3 months, bp including since admission No falls in past 3 months (0 pts). Abuse screen: Denies threats or abuse. Denies injuries from another. Nutritional screening: No deficits noted. Tuberculosis screening: No symptoms or risk factors identified. Assessment: 14:59 General: Appears distressed, slender, Behavior is cooperative, appropriate for age, bp anxious. General: PT TO CT. Injury Description: Laceration sustained to forehead is bleeding moderately. Vital Signs: 14:55 BP 188 / 113; Pulse 82; Resp 16; Temp 98; Pulse Ox 98% ; Weight 55.34 kg; Height 5 ft. ll1 4 in. ; Pain 8/10; 16:45 BP 174 / 96; Pulse 73; Resp 16; Pulse Ox 99% ; bp 17:17 BP 155 / 92; Pulse 77; Resp 16; Temp 98; Pulse Ox 98% ; bp 14:55 Body Mass Index 20.94 (55.34 kg, 162.56 cm) ll1 14:55 Pain Scale: Adult ll1 ED Course: 14:50 Patient arrived in ED. bp 14:54 Hardik Burns MD is Attending Physician. rt 14:54 Attending Physician role handed off by Hardik Burns MD sp3 14:54 Kayce Agarwal MD is Attending Physician. sp3 14:54 Arm band placed on Patient placed in an exam room, on a stretcher. ll1 14:56 Triage completed. ll1 14:59 Clay May, RN is Primary Nurse. bp 14:59 Patient has correct armband on for positive identification. Bed in low position. Call bp light in reach. 15:05 CT Head C Spine In Process Unspecified. EDMS 15:24 Inserted saline lock: 22 gauge in right antecubital area, using aseptic technique. db Blood collected. 15:24 Initial lab(s) drawn, by me, sent to lab. db 16:44 Assist provider with laceration repair on forehead that was between 2.6 to 7.5 cm using bp sutures. Set up tray. Performed by Kayce Agarwal MD Dressed with Neosporin, Patient tolerated well. 17:18 Provided Education on: N/A. bp 17:18 IV discontinued, intact, bleeding controlled, No redness/swelling at site. Pressure bp dressing applied. Administered Medications: No medications were administered Medication: 17:18 VIS not applicable for this client. bp Outcome: 17:03 Discharge ordered by . sp3 17:17 Discharged to home ambulatory, with family, bp 17:17 Condition: stable 17:17 Discharge instructions given to patient, Instructed on discharge instructions, follow up and referral plans. wound care, Demonstrated understanding of instructions, follow-up care, wound care, 17:18 Patient left the ED. bp Signatures: Dispatcher [employer] EDClay Miller, RN RN Serafin Page RN RN ll1 Kayce Agarwal MD MD sp3 Nilda Gardner RN RN db Hardik Burns MD MD rt
--- NOTE | 2024-03-07 17:03 | EDPHYS ---
Physician Documentation [facility] Name: Salima Benitez Age: 68 yrs Sex: Female : 1955 Arrival Date: 03/07/2024 Time: 14:48 Bed 2 Private MD: ED Physician Kayce Agarwal HPI: 03/07 16:57 This 68 yrs old Female presents to ER via Wheelchair with complaints of Fall Injury. 3 16:57 68-year-old female with history of hypertension, hyperlipidemia on Plavix presents to [facility] the ED for mechanical fall where she tripped and landed on her forehead. No loss of consciousness patient has no symptoms other than headache and laceration to the forehead. There was no medical prodrome prior to the fall. Review of systems otherwise negative for neck pain, chest pain, shortness of breath, back pain, extremity pain, abdominal pain, bleeding anywhere else or any other signs or symptoms on ROS at this time.. Historical: - Allergies: 14:54 No Known Allergies; ll1 - PMHx: 14:54 Hyperlipidemia; Hypertension; ll1 - PSHx: 14:54 cataract repair; ll1 - Immunization history:: Adult Immunizations up to date. - Infectious Disease History:: Denies. - Social history:: Smoking status: Patient denies any tobacco usage or history of. ROS: 16:59 Constitutional: Negative for fever, chills, and weight loss, Eyes: Negative for injury, sp3 pain, redness, and discharge, ENT: Negative for injury, pain, and discharge, Neck: Negative for injury, pain, and swelling, Cardiovascular: Negative for chest pain, palpitations, and edema, Respiratory: Negative for shortness of breath, cough, wheezing, and pleuritic chest pain, Abdomen/GI: Negative for abdominal pain, nausea, vomiting, diarrhea, and constipation, Back: Negative for injury and pain, MS/Extremity: Negative for injury and deformity, Allergy/Immunology: Negative for hives, rash, and allergies, Endocrine: Negative for neck swelling, polydipsia, polyuria, polyphagia, and marked weight changes, 16:59 All other systems are negative, Exam: 17:00 Constitutional: This is a well developed, well nourished patient who is awake, alert, sp3 and in no acute distress. Eyes: Pupils equal round and reactive to light, extra-ocular motions intact. Lids and lashes normal. Conjunctiva and sclera are non-icteric and not injected. Cornea within normal limits. Periorbital areas with no swelling, redness, or edema. ENT: Nares patent. No nasal discharge, no septal abnormalities noted. External auditory canals are clear. Oropharynx with no redness, swelling, or masses, exudates, or evidence of obstruction, uvula midline. Mucous membranes moist. Neck: Trachea midline, no thyromegaly or masses palpated, and no cervical lymphadenopathy. Supple, full range of motion without nuchal rigidity, or vertebral point tenderness. No Meningismus. Chest/axilla: Normal chest wall appearance and motion. Nontender with no deformity. No lesions are appreciated. Cardiovascular: Regular rate and rhythm with a normal S1 and S2. No gallops, murmurs, or rubs. Normal PMI, no JVD. No pulse deficits. Respiratory: Lungs have equal breath sounds bilaterally, clear to auscultation and percussion. No rales, rhonchi or wheezes noted. No increased work of breathing, no retractions or nasal flaring. Abdomen/GI: Soft, non-tender, with normal bowel sounds. No distension or tympany. No guarding or rebound. No evidence of tenderness throughout. MS/ Extremity: Pulses equal, no cyanosis. Neurovascular intact. Full, normal range of motion. Neuro: Awake and alert, GCS 15, oriented to person, place, time, and situation. Cranial nerves II-XII grossly intact. Motor strength 5/5 in all extremities. Sensory grossly intact. Cerebellar exam normal. Normal gait. Psych: Awake, alert, with orientation to person, place and time. Behavior, mood, and affect are within normal limits. 17:00 Head/face: 2 lacerations in a crescent shape on her forehead left one third in location. First 1 is 3 cm and the second 1 is 1 cm. Venous bleeding noted that is not stopping despite pressure. Underlying hematoma also present. No other facial abnormalities noted and ocular exam is normal including anterior chamber. Normal neurological exam.. Vital Signs: 14:55 BP 188 / 113; Pulse 82; Resp 16; Temp 98; Pulse Ox 98% ; Weight 55.34 kg; Height 5 ft. ll1 4 in. ; Pain 8/10; 16:45 BP 174 / 96; Pulse 73; Resp 16; Pulse Ox 99% ; bp 17:17 BP 155 / 92; Pulse 77; Resp 16; Temp 98; Pulse Ox 98% ; bp 14:55 Body Mass Index 20.94 (55.34 kg, 162.56 cm) ll1 14:55 Pain Scale: Adult ll1 MDM: 14:55 Patient medically screened. sp3 17:01 Data reviewed: vital signs, nurses notes, lab test result(s), radiologic studies. ED sp3 course: CT scan of the head demonstrates hematoma on the forehead otherwise no abnormalities. CT scan of the C-spine is also negative. Laboratory values including CBC and chemistries are normal. INR normal. A total of 4 stitches placed 5-0 Prolene after sterile prep and 2% lidocaine with epinephrine local anesthesia of approximately 3 mL. Lower small laceration of 1 cm repaired with one 5-0 Prolene and the other laceration repaired with the other three 5-0 Prolene sutures. All interrupted in fashion. Patient to remove sutures in 7 days. Area was cleaned prior to repair. Antibiotic ointment also placed subsequent. Tetanus is up-to-date. We will safely discharge patient home at this time.. 03/07 14:55 Order name: Basic Metabolic Panel; Complete Time: 15:51 sp3 03/07 14:55 Order name: CBC with Diff; Complete Time: 15:51 sp3 03/07 14:55 Order name: PT-INR; Complete Time: 15:51 sp3 03/07 14:55 Order name: CT Head C Spine; Complete Time: 16:27 sp3 03/07 14:55 Order name: Labs collected and sent; Complete Time: 15:28 sp3 Administered Medications: No medications were administered Disposition Summary: 03/07/24 17:03 Discharge Ordered Notes: Follow-up with your PCP for suture removal in 7 days Location: Home sp3 Condition: Stable sp3 Diagnosis - Closed head injury, forehead hematoma, forehead laceration, mechanical fall sp3 Followup: sp3 - With: Private Physician - When: Upon discharge from the Emergency Department - Reason: Continuance of care Discharge Instructions: - Discharge Summary Sheet sp3 - Head Injury, Adult sp3 - Facial Laceration sp3 Forms: - Medication Reconciliation Form sp3 - Antibiotic Education sp3 - Prescription Opioid Use sp3 - Patient Portal Instructions sp3 - Leadership Thank You Letter sp3 Signatures: Dispatcher [employer] EDSerafin Ponce, DANITA RN ll1 Kayce Agarwal MD MD sp3 Corrections: (The following items were deleted from the chart) 14:56 14:56 BASIC METABOLIC PANEL+C.LAB.BRZ ordered. EDMS EDMS 14:56 14:56 CBC+H.LAB.BRZ ordered. EDMS EDMS 14:56 14:56 PROTIME (+INR)+COAG.LAB.BRZ ordered. EDMS EDMS 14:56 14:56 Head C Spine MPR Wo Con+CT.RAD.BRZ ordered. EDMS EDMS
[2024-03-07 18:34] VITALS: BP 155/92; TEMP 98; O2SAT 98
== END 2024-03-07 17:18 | disposition home or self-care (01) ==
LOC: ER 14:48
PROC: 0JQ13ZZ Repair Face Subcutaneous Tissue and Fascia, Percutaneous Approach (ICD-10-PCS; principal; 2024-03-07)
DX: S01.81XA Laceration without foreign body of other part of head, initial encounter (principal); S00.83XA Contusion of other part of head, initial encounter; W01.0XXA Fall on same level from slipping, tripping and stumbling without subsequent striking against object, initial encounter; I10 Essential (primary) hypertension; E78.5 Hyperlipidemia, unspecified; Z79.02 Long term (current) use of antithrombotics/antiplatelets
CPT/HCPCS: 36415; 70450; 72125; 80048; 85025; 85610

== ENCOUNTER 2024-10-14 11:19 | Emergency (ER) | payer OTHER ==
--- NOTE | 2024-10-14 12:25 | RAD REPORT ---
Exam:Hand Right 3 View HISTORY: Right hand pain FINDINGS: Osteoporosis Cortical irregularity involves the base of the fifth metacarpal. This is equivocal for a fracture and should be correlated clinically. No dislocation. Arthritic changes involve the DIP joints.
--- NOTE | 2024-10-14 12:37 | RAD REPORT ---
EXAMINATION: CT HEAD WITHOUT CONTRAST CT CERVICAL SPINE WITHOUT CONTRAST CLINICAL INDICATION: Head and neck injury status post fall. Head and neck pain TECHNIQUE: Axial CT images from the skull base to the vertex without intravenous contrast. Axial CT i mages through the cervical spine were obtained without intravenous contrast. Sagittal and coronal reformatted images were created from the data set. Coronal and sagittal reformatted images were creat ed from the data set. One or more of the following dose reduction techniques were used: Automated exposure control, adjustment of the mA and/or kV according to patient size, and/or iterative reconstr uction. Unless otherwise specified, incidental findings do not require dedicated imaging follow-up. [id number]. Comparison: February 2024 FINDINGS: An intracranial bleed is not seen. Ventricles are normal in caliber. No significant hypodensity within the brain No extra-axial fluid collection. No fluid within the sinuses/mastoids No fracture or dislocation is seen involving the cervical spine. IMPRESSION: No acute intracranial abnormality noted A cervical fracture is not seen. If the patient continues to have symptoms to suggest acute INTENSIVE CARE ANAESTHETIST/spinal pathology then MRI would be rec ommended
[2024-10-14] MEDS ORDERED: LIDOCAINE 2% W/EPI 1:200,000 MPF 20 ML VIAL IM ONE (13:28)
--- NOTE | 2024-10-14 14:59 | EDPHYS ---
Physician Documentation [facility] Name: Salima Benitez Age: 69 yrs Sex: Female : 1955 Arrival Date: 10/14/2024 Time: 11:19 Bed 10 Private MD: ED Physician Tab Amaya HPI: 10/14 12:27 This 69 yrs old Female presents to ER via Unassigned with complaints of Fall Injury - ms3 BLOOD THINNERS. 12:27 Salima Benitez is a 69-year-old female who presents to the Emergency Department after ms3 tripping over a two-by-four and hitting her face. She reports no loss of consciousness. She is currently not experiencing nausea, or vomiting. Patient endorses headache. She is on blood thinners, specifically Plavix, due to 60% coronary artery blockage, but has not taken them for the past two days. She also reports having high blood pressure and high cholesterol. She rates her discomfort at a level of 5 out of 10.. Historical: - Allergies: 12:27 No Known Allergies; aa5 - Home Meds: 12:27 Plavix Oral [Active]; aa5 12:28 Aspirin Oral [Active]; tamsulosin 0.4 mg oral capsule [Active]; losartan 25 mg oral aa5 tablet [Active]; - PMHx: 12:27 Hyperlipidemia; Hypertension; 60% artery blockage (Unknown); 20% carotid blockage aa5 (Unknown); - PSHx: 12:27 cataract repair; aa5 - Immunization history:: Adult Immunizations unknown. - Infectious Disease History:: Denies. - Social history:: Smoking status: Patient denies any tobacco usage or history of. ROS: 12:27 Constitutional: Negative for fever, and chills. Cardiovascular: Negative for chest ms3 pain, and palpitations. Respiratory: Negative for shortness of breath, cough, wheezing, and pleuritic chest pain, Abdomen/GI: Negative for abdominal pain, nausea, vomiting, diarrhea, and constipation, 12:27 Skin: Positive for abrasion(s), 12:27 Neuro: Positive for headache, Exam: 12:27 Constitutional: This is a well developed, well nourished patient who is awake, alert, ms3 and in no acute distress. 12:27 Cardiovascular: Regular rate and rhythm with a normal S1 and S2. No gallops, murmurs, or rubs. Normal PMI, no JVD. No pulse deficits. Respiratory: Lungs have equal breath sounds bilaterally, clear to auscultation and percussion. No rales, rhonchi or wheezes noted. No increased work of breathing, no retractions or nasal flaring. Abdomen/GI: Soft, non-tender, with normal bowel sounds. No distension or tympany. No guarding or rebound. No evidence of tenderness throughout. 12:27 Head/face: Noted is abrasion(s), that are mild, of the nose, 12:27 Skin: injury, abrasion(s), of the right hand, Vital Signs: 12:30 BP 171 / 97; Pulse 73; Resp 18 S; Temp 98(TE); Pulse Ox 100% on R/A; Weight 57.15 kg aa5 (R); Height 5 ft. 5 in. (R); 12:30 Body Mass Index 20.97 (57.15 kg, 165.1 cm) aa5 Laceration: 21:46 Wound Repair of 2cm ( 0.8in ) subcutaneous laceration to nose. Skin/tissue flap noted.. ms3 Distal neuro/vascular/tendon intact. Anesthesia: Local anesthetic administered with 2 mls of 1% lidocaine w/ Epi. Wound prep: Simple cleansing. Skin closed with 6 6-0 Prolene using simple sutures and sterile technique. Patient tolerated well. 21:46 Wound Repair of 3cm ( 1.2in ) subcutaneous laceration to right hand. Distal ms3 neuro/vascular/tendon intact. Anesthesia: Local anesthetic administered with 2 mls of 1% lidocaine w/ Epi. Wound prep: Simple cleansing. Skin closed with 7 5-0 Prolene using simple sutures and sterile technique. Patient tolerated well. MDM: 12:04 Medical Screening Exam initiated ms3 21:46 Differential diagnosis: abrasion, closed head injury, fracture, sprain, strain. Data ms3 reviewed: vital signs, nurses notes, radiologic studies, and as a result, I will discharge patient. I considered the following discharge prescriptions or medication management in the emergency department Medications were administered in the Emergency Department. See MAR. Counseling: I had a detailed discussion with the patient and/or guardian regarding the historical points, exam findings, and any diagnostic results supporting the discharge/admit diagnosis, radiology results, the need for outpatient follow up, to return to the emergency department if symptoms worsen or persist or if there are any questions or concerns that arise at home. Special discussion: I discussed with the patient/guardian in detail that at this point there is no indication for admission to the hospital. It is understood, however, that if the symptoms persist or worsen the patient needs to return immediately for re-evaluation. ED course: Discussed necessity of suture removal in 10 days. Patient understands/ agrees with plan. All questions answered. Return precautions discussed to include worsening symptoms, or any other concerns. On re-evaluation patient is a/o x4, in nad, non-toxic, ambulatory in ED, speaking full sentences.. 10/14 11:56 Order name: CT Head C Spine; Complete Time: 12:38 ms3 10/14 12:01 Order name: Hand Right 3 View XRAY; Complete Time: 12:38 ms3 10/14 12:56 Order name: Misc. Order: Please place in room for lac repair; Complete Time: 13:36 ms3 10/14 12:56 Order name: Gloves, Sterile; Complete Time: 13:36 ms3 10/14 12:56 Order name: Prolene, Sutures: 6-0 Prolene on PS3; Complete Time: 13:36 ms3 10/14 12:56 Order name: Setup Suture Tray; Complete Time: 13:36 ms3 Administered Medications: 14:15 Drug: Lidocaine-Epinephrine Infiltration -1%: (1:100,000) 10 ml 20 ml Infiltration iw once; to bedside {Note: admin by Dr. Amaya .} Volume: 20 ml; Route: Infiltration; Disposition Summary: 10/14/24 14:59 Discharge Ordered Notes: Location: Home ms3 Condition: Stable ms3 Diagnosis - Hand Laceration/ Open wound of hand ms3 - Laceration without foreign body of other part of head ms3 Followup: ms3 - With: Craig Agarwal, DO - When: 2 - 3 days - Reason: Recheck today's complaints Discharge Instructions: - Discharge Summary Sheet ms3 - Fall Prevention in the Home, Adult ms3 - Laceration Care, Adult, [id number] ms3 Forms: - Medication Reconciliation Form ms3 - Antibiotic Education ms3 - Prescription Opioid Use ms3 - Patient Portal Instructions ms3 - Leadership Thank You Letter ms3 Prescriptions: - Tramadol 50 mg Oral Tablet - take 1 tablet ORAL route every 8 hours as needed; 12 tablet; Refills: 0, ms3 Product Selection Permitted Signatures: Dispatcher [employer] Delmy Angela, RN RN iw Kelly Garnett RN RN aa5 Tab Amaya DO DO ms3 Corrections: (The following items were deleted from the chart) 11:56 11:56 Head C Spine MPR Wo Con+CT.RAD.BRZ ordered. EDMS EDMS
--- NOTE | 2024-10-14 14:59 | ER ---
Nurse's Notes [facility] Name: Salima Benitez Age: 69 yrs Sex: Female : 1955 Arrival Date: 10/14/2024 Time: 11:19 Bed 10 Private MD: Diagnosis: Hand Laceration/ Open wound of hand;Laceration without foreign body of other part of head Presentation: 10/14 12:30 Chief complaint: Patient states: tripped and fell, hit nose and right hand. Denies LOC. aa5 Coronavirus screen: At this time, the client does not indicate any symptoms associated with coronavirus-19. Ebola Screen: Patient denies travel to an Ebola-affected area in the 21 days before illness onset. Initial Sepsis Screen: Does the patient meet any 2 criteria? No. Patient's initial sepsis screen is negative. Does the patient have a suspected source of infection? No. Patient's initial sepsis screen is negative. Risk Assessment: Do you want to hurt yourself or someone else? Patient reports no desire to harm self or others. Onset of symptoms was October 14, 2024. 12:30 Acuity: LETICIA 2 aa5 12:30 Method Of Arrival: Wheelchair aa5 Historical: - Allergies: 12:27 No Known Allergies; aa5 - Home Meds: 12:27 Plavix Oral [Active]; aa5 12:28 Aspirin Oral [Active]; tamsulosin 0.4 mg oral capsule [Active]; losartan 25 mg oral aa5 tablet [Active]; - PMHx: 12:27 Hyperlipidemia; Hypertension; 60% artery blockage (Unknown); 20% carotid blockage aa5 (Unknown); - PSHx: 12:27 cataract repair; aa5 - Immunization history:: Adult Immunizations unknown. - Infectious Disease History:: Denies. - Social history:: Smoking status: Patient denies any tobacco usage or history of. Screenin:30 [facility] ED Fall Risk Assessment (Adult) History of falling in the last 3 months, iw including since admission Confusion or Disorientation No (0 pts) Intoxicated or Sedated No (0 pts) Impaired Gait No (0 pts) Mobility Assist Device Used No (0 pt) Altered Elimination No (0 pt) Score/Fall Risk Level 0 - 2 = Low Risk Educated pt \T\ family on fall prevention, incl call for assistance when getting out of bed. Abuse screen: Denies threats or abuse. Nutritional screening: No deficits noted. Tuberculosis screening: No symptoms or risk factors identified. Assessment: 13:30 Reassessment: Patient is alert, oriented x 3, equal unlabored respirations, skin aa5 warm/dry/pink. Placed in room, MD notified. . 14:00 Reassessment: Patient appears in no apparent distress at this time. Patient and/or iw family updated on plan of care and expected duration. Pain level reassessed. Patient is alert, oriented x 3, equal unlabored respirations, skin warm/dry/pink. Vital Signs: 12:30 BP 171 / 97; Pulse 73; Resp 18 S; Temp 98(TE); Pulse Ox 100% on R/A; Weight 57.15 kg aa5 (R); Height 5 ft. 5 in. (R); 12:30 Body Mass Index 20.97 (57.15 kg, 165.1 cm) aa5 ED Course: 11:20 Patient arrived in ED. mg5 11:21 Seth Thornton MD is Attending Physician. ec2 11:47 Attending Physician role handed off by Seth Thornton MD ec2 11:47 Tab Amaya DO is Attending Physician. ec2 11:49 Patient's name was called from ER [facility]. No response. aa5 11:58 Patient's name was called from ER [facility]. No response. aa5 12:12 CT Head C Spine In Process Unspecified. EDMS 12:15 Hand Right 3 View XRAY In Process Unspecified. EDMS 12:27 Arm band placed on. aa5 12:31 Triage completed. aa5 14:30 Assist provider with laceration repair. Patient did not have IV access during this iw emergency room visit. 14:57 Craig Agarwal DO is Referral Physician. ms3 15:48 Delmy Panda, DANITA is Primary Nurse. iw Administered Medications: 14:15 Drug: Lidocaine-Epinephrine Infiltration -1%: (1:100,000) 10 ml 20 ml Infiltration iw once; to bedside {Note: admin by Dr. Amaya .} Volume: 20 ml; Route: Infiltration; Outcome: 14:59 Discharge ordered by . ms3 15:45 Discharged to home ambulatory, iw 15:45 Condition: good 15:45 Discharge instructions given to patient, Instructed on discharge instructions, follow up and referral plans. Demonstrated understanding of instructions, follow-up care, Prescriptions given X 1, 15:48 Patient left the ED. iw Signatures: Dispatcher [employer] Delmy Angela RN RN iw Calderon, Audri, RN RN aa5 Tab Amaya DO DO ms3 Rody Neal mg5 Seth Thornton MD MD ec2 Corrections: (The following items were deleted from the chart) 12:31 12:30 BP 171 / 97; Pulse 73bpm; Resp 18bpm; Spontaneous; Pulse Ox 100% RA; Temp 98F aa5 Temporal; aa5
[2024-10-14 16:35] VITALS: BP 171/97; TEMP 98; O2SAT 100
== END 2024-10-14 15:48 | disposition home or self-care (01) ==
LOC: ER 11:19
DX: S01.21XA Laceration without foreign body of nose, initial encounter (principal); S61.411A Laceration without foreign body of right hand, initial encounter; W01.0XXA Fall on same level from slipping, tripping and stumbling without subsequent striking against object, initial encounter; Z79.01 Long term (current) use of anticoagulants
CPT/HCPCS: 12011; 70450; 72125; 99283